=== PATIENT | male | born 1945 | race Caucasian/White ===

== ENCOUNTER 2023-06-25 20:58 | Emergency (ER) | payer OTHER ==
[~2023-06-25] VITALS: Ht 175.3 cm; Wt 59.0 kg
[2023-06-25 22:41] LABS: Urine Bacteria FEW /hpf (None Seen); Urine Blood TRACE /uL (Negative); Urine Clarity Clear (Clear); Urine Color Yellow (Yellow); Urine Mucus FEW (None Seen); Urine Protein, UAD 1+ (Negative); Urine Specific Gravity 1.022 (1.001-1.035); Urine WBC 2 /hpf (0 - 3); Urine pH 5.5 (5.0-8.0)
[2023-06-25 22:46] LABS: Basophils # (auto) 0 10 ^3/uL (0-0.2); Basophils % (auto) 0.3 % (0.0-2.0); Eosinophils # (auto) 0 10 ^3/uL (0-0.8); Hematocrit 43.2 % (41.0-53.0); Hemoglobin 14.5 g/dL (13.5-17.5); Lymphocytes # (auto) 1.8 10 ^3/uL (0.4-5.4); Lymphocytes % (auto) 9.9 % (10.0-50.0); Mean Corpuscular Hemoglobin 30.6 pg (28.0-32.0); Mean Corpuscular Hgb Conc. 33.5 g/dL (32.0-36.0); Mean Corpuscular Volume 91.2 fL (80.0-100.0); Monocytes # (auto) 2.1 10 ^3/uL (0-1.3); Monocytes % (auto) 11.3 % (0.0-12.0); Neutrophils # (auto) 14.4 10 ^3/uL (1.6-8.6); Neutrophils % (auto) 78.5 % (37.0-80.0); Nucleated Red Blood Cells % 0.1 %; Red Blood Cells 4.74 10^6/uL (4.5-5.90); Red Cell Distribution Width 14.5 % (11.8-14.3); White Blood Cell 18.4 10^3/uL (4.4-10.8)
[2023-06-25 22:52] VITALS: PULSE 112; RESP 42; O2SAT 94
[2023-06-25 23:05] LABS: Alanine Aminotransferase 16 U/L (7-40); Albumin 3.7 g/dL (3.2-4.8); Alkaline Phosphatase 113 U/L (46-116); Anion Gap 10 (5-15); Aspartate Aminotransferase 18 U/L (13-40); BUN/Creatinine Ratio 21.1 (10.0-20.0); Blood Urea Nitrogen 19 mg/dL (9-23); Calcium 8.8 mg/dL (8.5-10.1); Carbon Dioxide 20 mmol/L (20-30); Chloride 101 mmol/L (98-107); Glucose 146 mg/dL (74-106); Potassium 4.2 mmol/L (3.5-5.1); Sodium 131 mmol/L (136-145); Total Protein 6.6 g/dL (5.7-8.2)
[2023-06-26] MEDS ORDERED: ACETAMINOPHEN 325 MG TAB PO PRN (03:00)
[2023-06-26 03:40] LABS: INR 1.24 (0.9-1.15); Partial Thromboplastin Time 31.8 SEC (24.5-34.5); Prothrombin Time 12.8 sec (9.3-11.8)
[2023-06-26] MEDS ORDERED: SODIUM CHLORIDE 0.9% 1,000 ML IV ONE (04:15)
[2023-06-26] MEDS ORDERED: PIPERACILLIN-TAZOB 3.375GM 100 ML IV ONE (04:15)
[2023-06-26] MEDS ORDERED: IOHEXOL 350 MG/ML 100ML IJ ONE (05:38)
[2023-06-26 07:35] VITALS: PULSE 102; RESP 31; O2SAT 95
[2023-06-26 10:01] VITALS: BP 158/82; PULSE 100; RESP 41; TEMP 98.6; O2SAT 94
== END 2023-06-26 10:11 | disposition short-term general hospital (02) ==
LOC: EDBD 20:58 → ER 20:58
DX: R53.1 Weakness (principal); R19.7 Diarrhea, unspecified; R51.9 Headache, unspecified; Z79.899 Other long term (current) drug therapy; Z98.890 Other specified postprocedural states; W18.39XA Other fall on same level, initial encounter; Y93.89 Activity, other specified; Y92.89 Other specified places as the place of occurrence of the external cause; Y99.8 Other external cause status
CPT/HCPCS: 36415; 70450; 70496; 71045; 80053; 81001; 82962; 83605; 83735; 83880; 84484; 85025; 85610; 85730; 87040; 87077; 87186; 93005; 96365; 96366; 99285; J2543; Q9967